=== PATIENT | female | born 1965 | race Caucasian/White ===

== ENCOUNTER 2020-10-28 17:44 | Emergency (ER) | payer OTHER ==
[2020-10-28] MEDS ORDERED: Acetaminophen/oxyCODONE 325-5 MG Tab PO STA (18:07)
--- NOTE | 2020-10-28 18:13 | EDM.PDOC ---
ED HPI GENERAL MEDICAL PROBLEM - General Chief Complaint: Lower Extremity Injury/Pain Stated Complaint: LEFT KNEE PAIN/INJURY Time Seen by Provider: 10/28/20 18:05 Source of Information: Reports: Patient. Denies: Old Records History Limitations: Reports: No Limitations - History of Present Illness INITIAL COMMENTS - FREE TEXT/NARRATIVE: 55 yo female here with L knee pain after a large dog ran into that knee head first. Says the pain is just below and a bit lateral to the knee. No tx before arrival. Is [place]. 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: Reports: Other (see below) (none) - Related Data Allergies Allergy/AdvReac Type Severity Reaction Status Date / Time No Known Allergies Allergy Verified 10/28/20 18:04 Home Meds: Home Meds Acetaminophen [Tylenol Arthritis] 650 mg PO DAILY 10/28/20 [History] Tocilizumab [Actemra] 1.9 mg SQ WEEKLY 10/28/20 [History] predniSONE [Prednisone] 4 mg PO DAILY 10/28/20 [History] Review of Systems - Review of Systems Review Of Systems: See Below Constitutional: Reports: No Symptoms Musculoskeletal: Reports: Joint Pain (L knee) Skin: Reports: Bruising (around the knee) Neurological: Reports: No Symptoms ED EXAM, GENERAL - Physical Exam Exam: See Below Exam Limited By: No Limitations General Appearance: Alert, WD/WN, No Apparent Distress Extremities: Pedal Edema (slight L knee swelling), Limited Range of Motion (due to pain), Other (no obvious ligamentous laxity, but has pain to the leg just be low that knee with any manipulation). No: Normal Range of Motion, Non-Tender, No Pedal Edema Neurological: Alert, Oriented, CN II-XII Intact, Normal Cognition, No Motor/Sensory Deficits Psychiatric: Normal Affect, Normal Mood Skin Exam: Warm, Dry, Intact, No Rash, Ecchymosis (above and medial to the knee and below and lateral to the knee). No: Normal Color ED TRAUMA EXTREMITY PROCEDURES - Splinting Left Lower Extremity Splint Site: L knee Pre-Procedure NV Status: Normal Post-Procedure NV Status: Normal Splint Material: Other (Orthoglass with SUSAN wraps 6 inch x 2, 4 inch x 1) Splint Design: Other (posterior) Applied & Form Fitted By: Provider Provider Post-Splint Application NV Check: NV Status Normal, Good Position Complications: No Progress/Comments: 5 inch width Orthoglass x 30 inches used Course - Vital Signs Last Recorded V/S: Last Vital Signs Temp 35.9 C L 10/28/20 18:12 Pulse 89 10/28/20 18:12 Resp 16 10/28/20 18:12 BP 188/84 H 10/28/20 18:12 Pulse Ox 97 10/28/20 18:12 - Orders/Labs/Meds Orders: Active Orders 24 hr Category Date Time Status Knee 3V Lt [CR] Stat Exams 10/28/20 18:08 Taken Meds: Medications Discontinued Medications Generic Name Dose Route Start Last Admin Trade Name Freq PRN Reason Stop Dose Admin Oxycodone/Acetaminophen 1 tab 10/28/20 18:07 10/28/20 18:15 Acetaminophen/Oxycodone 325-5 Mg Tab PO 10/28/20 18:08 1 tab ONETIME STA Administration - Radiology Interpretation Free Text/Narrative:: L knee [id number] plateau fx Departure - Departure Time of Disposition: 19:00 Disposition: Home, Self-Care 01 Condition: Fair Clinical Impression: Fracture of left tibial plateau Qualifiers: Encounter type: initial encounter Fracture type: closed Qualified Code(s): S82.142A - Displaced bicondylar fracture of left tibia, initial encounter for closed fracture - Discharge Information *PRESCRIPTION DRUG MONITORING PROGRAM REVIEWED*: No *COPY OF PRESCRIPTION DRUG MONITORING REPORT IN PATIENT WANG: No Instructions: Tibial Fracture, Adult, [id number] Referrals: PCP,None [Primary Care Provider] - Forms: ED Department Discharge Additional Instructions: Crutch walking and no weight bearing. Take your X-rays along to an orthopedic appt back home in the next week. Take ibuprofen and/or acetaminophen for pain relief. You may substitute [place] for acetaminophen as needed for more pain relief. Wear splint at all times. Sepsis Event Note (ED) - Focused Exam Vital Signs: Vital Signs Temp Pulse Resp BP Pulse Ox 10/28/20 18:12 35.9 C L 89 16 188/84 H 97 10/28/20 18:01 35.9 C L 89 16 188/84 H 97 - My Orders Last 24 Hours: My Active Orders 10/28/20 18:08 Knee 3V Lt [CR] Stat - Assessment/Plan Last 24 Hours: My Active Orders 10/28/20 18:08 Knee 3V Lt [CR] Stat
--- NOTE | 2020-10-30 09:38 | CR ---
Knee 3V Lt CLINICAL HISTORY: Injury FINDINGS: There is some deformity of the lateral tibial plateau. There is some trabecular irregularity extending into the medial tibial metaphysis. Impression: Deformity of the tibial metaphysis extending to the medial and lateral tibial plateaus suggest comminuted fracture with slight depression of the lateral aspect of lateral tibial plateau. Proximal fibula is not well seen due to positioning
== END 2020-10-28 19:40 | disposition home or self-care (01) ==
LOC: JP.ED 17:44
DX: S82.142A Displaced bicondylar fracture of left tibia, initial encounter for closed fracture (principal); W54.8XXA Other contact with dog, initial encounter
CPT/HCPCS: 29505; 73562; 99283; A9270